=== PATIENT | male | born 1995 | race Caucasian/White ===

== ENCOUNTER 2016-12-06 15:22 | Emergency (ER) | payer BC, SELFPAY ==
[~2016-12-06] VITALS: Ht 180.3 cm; Wt 77.3 kg
[2016-12-06 15:22] VITALS: BP 138/82
[~2016-12-06 15:22] MED LIST: /TRAZ15TA PO; ATOM40CA PO; BACI50OI TOP; CYCL10TA3 PO; PAXIL PO; PROZ20CA11 PO; SERO200T2 PO; Seroquel PO; [UNRECOGNIZED DRUG - OTHER] PO
[2016-12-06] MEDS ORDERED: HYDR25OIN TOP (18:01)
[2016-12-06] MEDS ORDERED: CLAR1TAB2 PO (18:01)
== END 2016-12-06 18:27 | disposition home or self-care (01) ==
LOC: M ED 15:22
DX: S20.469A Insect bite (nonvenomous) of unspecified back wall of thorax, initial encounter (principal); W57.XXXA Bitten or stung by nonvenomous insect and other nonvenomous arthropods, initial encounter; Y92.9 Unspecified place or not applicable; Y93.9 Activity, unspecified; Y99.9 Unspecified external cause status; F17.200 Nicotine dependence, unspecified, uncomplicated